=== PATIENT | male | born 1970 | race Two or more races ===

== ENCOUNTER 2022-06-06 16:54 | Emergency (ER) | payer OTHER ==
[~2022-06-06] VITALS: Ht 182.9 cm; Wt 97.7 kg
[2022-06-06 20:45] VITALS: BP 129/79
== END 2022-06-06 20:45 | disposition home or self-care (01) ==
LOC: ER 16:54
DX: S01.21XA Laceration without foreign body of nose, initial encounter (principal); Z98.890 Other specified postprocedural states; W22.8XXA Striking against or struck by other objects, initial encounter; Y93.89 Activity, other specified; Y92.89 Other specified places as the place of occurrence of the external cause; Y99.8 Other external cause status
CPT/HCPCS: 12011; 70486